=== PATIENT | female | born 1970 | race Caucasian/White ===

== ENCOUNTER 2017-05-23 05:19 | Day surgery (SDC) | payer BC ==
[~2017-05-23] VITALS: Ht 167.6 cm; Wt 91.2 kg
--- NOTE | ~2017-05-23 | EKG ---
[address] [address] ELECTROCARDIOGRAM REPORT Name: AIDE PENNINGTON Room #: 150-4 [facility]#: [id number] Admission: 05/23/17 Attend Phys: Yousuf Castro MD Discharge: Date of : 70 Report #: [id number] THIS REPORT FOR: //name// [facility] Test Date: 2017-05-23 Test Time: 07:03:04 Pat Name: AIDE PENNINGTON Department: Room: 150 4 Gender: F Web Developer Programmer: GUILLAUME : 1970 Requested By: Marah Guevara Order Number: [id number] MD: Hero David Measurements Intervals [place] Rate: 67 P: -12 ID: 143 QRS: 2 QRSD: 76 T: 3 QT: 412 QTc: 435 Interpretive Statements Sinus rhythm Abnormal R-wave progression, early transition No previous ECG available for comparison Electronically Signed On 05-23-2017 8:58:57 PHYSICAL BIOCHEMIST by Hero David [email or web address] <ELECTRONICALLY SIGNED> By: Hero David MD, [facility] 05/23/17 [id number] [id number] Hero David MD, FACC /EPI
--- NOTE | ~2017-05-23 | O ---
[address] [address] OPERATIVE REPORT Name: AIDE PENNINGTON Room #: 150-4 [facility]..#: [id number] Admission: 05/23/17 Attend Phys: Yousuf Castro MD Discharge: Date of : 70 Report #: [id number] THIS REPORT FOR: //name// CC: Annette Castro DATE OF SERVICE: 05/23/2017 SERVICE: Orthopedics. FACILITY: [facility] SURGEON: Yousuf Castro MD SENIOR CARE PROVIDER: None. PREOPERATIVE DIAGNOSES: 1. Right hip pain. 2. Right hip impingement syndrome. 3. Right hip labral tear. 4. Right hip abductor tendonopathy/heterotopic ossification. POSTOPERATIVE DIAGNOSES: 1. Right hip pain. 2. Right hip impingement syndrome. 3. Right hip labral tear. 4. Right hip abductor tendonopathy/heterotopic ossification. PROCEDURES: 1. Right hip arthroscopic Cam osteochondroplasty. 2. Right hip arthroscopic sub-spine acetabuloplasty. 3. Right hip arthroscopic labral repair. 4. Right hip arthroscopic limited abductor debridement. COMPLICATIONS: None. DRAINS: None. SPECIMENS: None. ANESTHESIA: General with regional. FINDINGS: 1. Chondral labral disruption with chondral wave sign in the anterior superior hip. 2. Intact articular cartilage. [address] [address] OPERATIVE REPORT Name: AIDE PENNINGTON Room #: 150-4 [facility]#: [id number] Admission: 05/23/17 Attend Phys: Yousuf Castro MD Discharge: Date of : 70 Report #: [id number] 3. Labral repair performed with [place] Brianus Nghia anchor times 2. 3. Area of calcification just anterior to the abductor insertion of the greater trochanter that was identified in preoperative x-rays, was visualized under endoscopy with fluoroscopy confirmation, there was no evidence of high grade pathology here. HISTORY AND INDICATIONS: The patient is a 47-year-old female with a history of persistent right hip pain that was recalcitrant to conservative treatment including rest, activity modification, oral medicines, and physical therapy. 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 Gómez Poon, she returned to see Dr. Poon about her right hip pain and had AVN ruled out. She was then referred for evaluation for possible femoroacetabular impingement symptomatology and we then obtained an MRI arthrogram, which showed a labral tear consistent with femoroacetabular impingement. She had a low prominent anterior inferior iliac spine in a very focal area and she had an alpha angle of 57 degrees on her x-rays. She had Tonnis grade of 0 and well maintained joint spaces. In addition, she had calcification, which was benign in appearance on both x-ray and on MRI basically anterior to the greater trochanter & the gluteus medius insertion adjacent to the bald spot on the abductor insertion on the greater trochanter. The pain was significantly affecting her daily activities and she actually lost her job and was unable to continue working and has not been working for several months. She therefore wished to move forward with definitive treatment to hopefully get her life back on track, so she can resume employment with less discomfort and increased function. Risks, benefits, alternatives, and indications for surgery were discussed with him in detail. Risks include, but not limited to pain, bleeding, infection, injury to nerves or blood vessels, persistent pain despite surgical intervention, failure of any repairs, reconstructions, progression of any preexisting chondral injury, stiffness, need for further surgery as well as complications related to anesthesia such as stroke, heart attack, pulmonary complications, thromboembolic disease and . Despite these risks, she wished to proceed. PROCEDURE IN DETAIL: After right lower extremity was correctly identified in preoperative holding area as the operative extremity, the patient underwent placement of a single shot regional nerve block by the anesthesia team. She was then taken to the operating room and placed supine on the operating table. General anesthesia was induced without complication. She was padded appropriately. Prophylactic antibiotics were administered at appropriate time. Bilateral lower extremities were placed in traction boot and I mapped out the femoral head and neck junction on the fluoroscopy. There was just a subtle Cam deformity, which correlated with the alpha angle of 57 degrees with the apex at about the 30-45 degree position on the femoral neck. The right leg was then prepped and draped in standard sterile fashion. Time-out procedure was performed. Traction was applied to the right leg. A standard anterolateral [facility] [address] [place] [address] OPERATIVE REPORT Name: AIDE PENNINGTON Room #: 150-4 [facility] Renetta.Ashley#: [id number] Admission: 05/23/17 Attend Phys: Yousuf Castro MD Discharge: Date of : 70 Report #: [id number] viewing portal was established followed by a mid anterior working portal, then a transverse capsulotomy was performed. Diagnostic arthroscopy revealed intact articular cartilage on the femoral head as well as the acetabulum for essentially 90% of it, with remaining 10% had a subtle chondral wave sign in the anterior superior aspect of the hip. There was no thinning of the cartilage or fraying of the cartilage, but it was mobile here and there was some limited yellow streaking right at the chondral labral junction. There was also a crack and disruption of the chondral labral junction with curling up of the labrum at approximately 12 o'clock position, which correlated with an area of dense bone directly below the anterior inferior iliac spine, which was consistent with a focal sub-spine pincer impingement. In this position between the bone and the labrum, there was also intensely erythematous capsule and synovium with synovitis present. Shaver was used to reflect the capsule off the dorsal side of the labrum to allow access to the low portion of the anterior column and a bur was used to perform an extraarticular sub-spine acetabuloplasty. The bur was then used to gently abrade the acetabular rim to generate a bleeding surface for labral refixation. The first anchor was then placed at approximately the 1 o'clock position and the second anchor was placed at approximately the 11:30 position, both with cerclage sutures with a goal to repair the labrum, secure the labrum and stabilize the peripheral rim acetabular cartilage. While the traction was still up, the attention was turned towards the pulvinar where there was a significant amount of synovitis here and so the cautery and the shaver were used to perform an extensive debridement in this region. There was no further pathology encountered. At this point, the traction was let down and the hip was flexed allowing visualization of the Cam deformity, which was small to medium in size and the bur was used to perform a Cam osteochondroplasty in standard fashion. I removed the instruments from the hip, brought the C-arm back in, evaluated the Cam resection, found an additional area that would benefit from further resection, placed the scope back into the hip, completed the Cam osteoplasty and then took final x-rays after I satisfied with the final bone resection. At this point, the capsule was then closed with a total of 5 #2 Vicryl sutures in a [id number] fashion. At this point, the hip was then extended and then externally rotated, which allowed access to the area of heterotopic ossification, which was just anterior to the greater trochanter and under fluoroscopic localization, the scope was placed into this area with a blunt trocar then placed to allow access to the tissue. Inline dissection was performed bluntly down to the area of heterotopic ossification and then a shaver was placed into this area and a limited debridement was performed on oscillate end on forward to debride some of the heterotopic ossification. There was no evidence of any pathology or malignancy other than the bone in this location. The abductor tendon had a limited amount of tendinopathy deep, which was debrided with a shaver, but otherwise the tendon was intact without any evidence of significant high-grade tear, which correlated with the preoperative MRI. At this point, the instruments were removed from the hip. The fluid was drained. The portal site was closed with a deep followed by [address] [address] OPERATIVE REPORT Name: AIDE PENNINGTON Room #: 150-4 [facility] M..#: [id number] Admission: 05/23/17 Attend Phys: Yousuf Castro MD Discharge: Date of : 70 Report #: [id number] superficial Monocryl stitches. Sterile dressing was applied. The patient was awakened from anesthesia and taken to recovery room in stable condition. Plan will be 50% weightbearing for approximately 3 weeks with her progressing off of the crutches around that point and full range of motion as tolerated. <ELECTRONICALLY SIGNED> By: Yousuf Castro MD 05/23/17 2030 [id number] Yousuf Castro MD /nt
[~2017-05-23 05:19] MED LIST: BUSPIRONE HCL15 MG PO; CELEXA40 MG PO; DICLOFENAC SODI75 MG PO; DILAUDID 4 MG TA4 M1 PO; ESTRADIOL 1 MG T1 M1 PO; HAIR, SKIN & N1 EAC3 PO; KERATIN PO; LIDOCAINE1 EACH TOP; LYRICA150 MG PO; STOOL SOFTENER100 M1 PO; TOPROL XL25 MG PO; TRAZODONE 150150 M1 PO; XANAX1 MG PO; ZOHYDRO ER50 M1 PO
[2017-05-23 08:00] VITALS: BP 123/71
[2017-05-23 12:30] VITALS: BP 123/71
== END 2017-05-23 14:00 | disposition home or self-care (01) ==
LOC: TBA 05:19 → OR 05:19
DX: M25.851 Other specified joint disorders, right hip (principal); S73.191A Other sprain of right hip, initial encounter; S76.211A Strain of adductor muscle, fascia and tendon of right thigh, initial encounter; I10 Essential (primary) hypertension; F32.89 Other specified depressive episodes; F41.8 Other specified anxiety disorders; Z85.828 Personal history of other malignant neoplasm of skin; Z86.2 Personal history of diseases of the blood and blood-forming organs and certain disorders involving the immune mechanism; Z90.49 Acquired absence of other specified parts of digestive tract; Z90.710 Acquired absence of both cervix and uterus; Z96.642 Presence of left artificial hip joint; Z98.890 Other specified postprocedural states; Z79.899 Other long term (current) drug therapy; Z91.040 Latex allergy status; Z88.8 Allergy status to other drugs, medicaments and biological substances; Z79.891 Long term (current) use of opiate analgesic; X58.XXXA Exposure to other specified factors, initial encounter; Y93.89 Activity, other specified; Y92.89 Other specified places as the place of occurrence of the external cause; Y99.8 Other external cause status
CPT/HCPCS: 50010; 50101; 51538; 52304; 55430; 56524; 56525; 56527; 57092; 62110; 62900; 70005